=== PATIENT | female | born 1990 | race Caucasian/White ===

== ENCOUNTER 2020-03-28 13:50 | Emergency (ER) | payer OTHER ==
[~2020-03-28] VITALS: Ht 154.9 cm; Wt 76.2 kg
== END 2020-03-28 15:17 | disposition home or self-care (01) ==
LOC: ER 13:50
DX: S01.22XA Laceration with foreign body of nose, initial encounter (principal); W22.8XXA Striking against or struck by other objects, initial encounter; Y93.89 Activity, other specified; Y92.69 Other specified industrial and construction area as the place of occurrence of the external cause; Y99.8 Other external cause status